=== PATIENT | male | born 1985 | race Caucasian/White ===

== ENCOUNTER 2016-08-30 20:20 | Emergency (ER) | payer OTHER ==
[~2016-08-30 20:20] MED LIST: MINIPRESS PO; NEURONTIN; NORCO1 TAB 10/3; REMERON PO
== END 2016-08-30 20:21 | disposition left against medical advice (07) ==
LOC: CED 20:20
DX: Z53.21 Procedure and treatment not carried out due to patient leaving prior to being seen by health care provider (principal)

== ENCOUNTER 2016-09-20 13:01 | Emergency (ER) | payer OTHER ==
[2016-09-20 13:13] LABS: URINE SOURCE CLEAN CATCH
[2016-09-20 13:19] LABS: URINE APPEARANCE CLEAR; URINE BILIRUBIN NEG (NEG); URINE BLOOD NEG (NEG); URINE COLOR YELLOW; URINE GLUCOSE NEG (NEG); URINE KETONE 1+ (NEG); URINE LEUKOCYTE ESTERASE NEG (NEG); URINE NITRATE NEG (NEG); URINE PROTEIN NEG (NEG); URINE SPECIFIC GRAVITY 1.027 (1.003-1.035); URINE UROBILINOGEN 0.2 MG/DL (NEG)
[2016-09-20 13:23] LABS: CULTURE INDICATED? NO
[2016-09-20 13:49] LABS: AMPHETAMINE POS (NEG); BARBITURATES NEG (NEG); BENZODIAZEPINES POS (NEG); COCAINE NEG (NEG); MARIJUANA NEG (NEG); OPIATES NEG (NEG); TRICYCLIC ANTIDEPRESSANTS NEG (NEG); U METHADONE NEG (NEG)
== END 2016-09-20 14:00 | disposition home or self-care (01) ==
LOC: CED 13:01
PROVIDERS: Emergency Medicine
DX: F11.10 Opioid abuse, uncomplicated (principal); F12.10 Cannabis abuse, uncomplicated; Z88.5 Allergy status to narcotic agent; Z88.8 Allergy status to other drugs, medicaments and biological substances
CPT/HCPCS: 80307; 81003; 99282; G0480

== ENCOUNTER 2016-12-23 20:00 | Inpatient (IN) | payer OTHER ==
--- NOTE | ~2016-12-23 | HP ---
Unit #: [id number] #: [id number] Patient: KRISHNA COSBY [id number] [facility] [address] [place] [address] [id number] MR#: [id number] NAME: KRISHNA COSBY. ROOM: [facility] Age: 31 Sex: M Admission Date: 12/23/2016 : 1985 Attending Physician: Derik Israel M.D. Admitting Physician: Derik Israel M.D. Primary Care Physician: Elidia Lopez M.D. HISTORY AND PHYSICAL HISTORY OF PRESENT ILLNESS Krishna is a 31 year old admitted to [facility] because of his polysubstance abuse which includes alcohol, heroin, and benzodiazepines. PAST MEDICAL HISTORY 1. Long history of polysubstance abuse to include IV heroin. 2. History of stage IV melanoma. 3. Hepatitis C. PAST SURGICAL HISTORY Resection of a stage IV melanoma from his back many years ago. ALLERGIES Tramadol. SOCIAL HISTORY Smokes 2 packs per day. Denies alcohol. Admits to long history of illicit substance abuse to include IV heroin. FAMILY HISTORY Medically noncontributory. REVIEW OF SYSTEMS CONSTITUTIONAL: No fever or chills. HEENT: Denies any sore throat, ear pain or runny nose. CARDIOVASCULAR: Denies chest pain, irregular heart rhythm or palpitations. CHEST: Denies shortness of breath or cough. No hemoptysis. GASTROINTESTINAL: Denies nausea, vomiting, diarrhea or chronic constipation. ENDOCRINE: Denies history of increased thirst or urination. No recent significant weight loss or gain. GENITOURINARY: Denies dysuria, frequency, or hematuria. SKIN: Denies any rashes. HEMATOLOGIC: Denies history of increased bleeding or bruising. MUSCULOSKELETAL: Denies any hot, swollen joints. No generalized muscle pain. NEUROLOGIC: Denies problems with vision or speech. No frequent, severe headaches. No numbness, tingling or weakness in any extremities. Denies loss of bladder or bowel control. CURRENT MEDICATIONS 1. Detox protocol. 2. Minipress 2 mg q.h.s. Unit #: [id number] #: [id number] Patient: KRISHNA COSBY 3. Remeron 15 mg q.h.s. 4. Neurontin 400 mg t.i.d. 5. Zoloft 100 mg q. day. PHYSICAL EXAMINATION GENERAL: Alert, well nourished. No apparent distress. VITAL SIGNS: Blood pressure 100/70, heart rate 80, respirations 16, and temperature 98.6. WEIGHT: 169. HEIGHT: 6 feet 4 inches. SKIN: Warm and dry without rash or lesion. HEENT: Normocephalic. TMs not viewed. Oral and nasal passages clear. Conjunctivae clear. PERRLA. EOMs intact. NECK: Supple without lymphadenopathy or thyromegaly. HEART: Regular rate and rhythm without murmur. LUNGS: Clear. ABDOMEN: Soft, nontender. : Not done. EXTREMITIES: No evidence of cyanosis, clubbing or edema. Moves all without focal deficit. NEUROLOGICAL: Grossly within normal limits. Cranial Nerves: II: Visual mendez are intact. III, IV AND : Extraocular movements are intact. Pupils are equal, round and reactive to light. V: Facial sensation is grossly normal. VII: Facial movements and expression are normal. VIII: Auditory acuity grossly intact. IX, X: Uvula is midline. Phonation is normal. XI: Patient shrugs shoulders and turns head normally. XII: Tongue protrudes in the midline. Sensory and Motor Function: Sensory and motor sensation is grossly normal. Motor: moves all extremities well. Coordination: Gait is normal. Deep Tendon Reflexes: Intact. IMPRESSION Psychiatric admission. RECOMMENDATIONS PSYCHIATRIC: Per psychiatrist. MEDICAL: I see no contraindication to participate in this facility's activities. MEDICAL PROGNOSIS Good. MEDICAL CONDITION Stable. Dictated by... Gale Blake P.A.-C. for Joseph Gonsalves/med TD: 12/25/2016 07:38 JOB #: [id number] Unit #: [id number] #: [id number] Patient: KRISHNA COSBY HISTORY AND PHYSICAL Page 1 of 1 X Gale Blake HISTORY AND PHYSICAL
--- NOTE | ~2016-12-23 | PA ---
Unit #: [id number] #: [id number] Patient: KRISHNA MONSIVAIS [id number] [facility] [address] [place] [address] [id number] MR#: [id number] NAME: KRISHNA MONSIVAIS. ROOM: P183 Age: 31 Sex: M Admission Date: 12/23/2016 : 1985 Date of Assessment: Attending Physician: Derik Israel M.D. Admitting Physician: Derik Israel M.D. Primary Care Physician: Elidia Lopez M.D. PSYCHIATRIC ASSESSMENT DATE OF SERVICE 12/24/2016. IDENTIFYING DATA Mr. Monsivais is a 31-year-old single white male with history of substance abuse and mood disorder, who is a resident of [place], [place], and is very well known to us from previous multiple encounters and was self-referred to the hospital. CHIEF COMPLAINT "I'm on drugs and I would like to detox. I'm also suicidal." HISTORY OF PRESENT ILLNESS Mr. Monsivais is a 31-year-old white male, who presented to the hospital stating that he has been having suicidal thoughts and he has been back on drugs and that he is currently using IV heroin daily with the last use this morning and also reports half a gram of methamphetamine orally or smoking daily with the last use being yesterday and 1 to 3 mg of Xanax with the last use yesterday and 7 to 10 joints a day of spice with the last use yesterday and reports that he is currently suicidal with plan to go down and jump off the bridge, just overdose, and reports increasing depression, anxiety, irritability, feelings of hopelessness and helplessness, and suicidal ideation as well as auditory hallucinations stating "I hear people telling me random things." SUBSTANCE ABUSE HISTORY The patient has extensive history of substance abuse and dependence including alcohol, cannabis, opioids, methamphetamine, benzodiazepines, and spice and currently has been using most of the other drugs on regular basis and he describes heroin to be his drug of choice. PAST PSYCHIATRIC HISTORY The patient has had history of multiple inpatient psychiatric and chemical dependency treatments at [facility], at [facility] and has had outpatient treatment in the past as well. Review of the medical records indicate that he has been diagnosed and treated for mood disorder and is supposed to be on combination of antidepressant medications including Remeron and Zoloft, but appears to be noncompliant with medication and as such, has been decompensating. PAST MEDICAL HISTORY No acute or chronic medical illnesses. Unit #: [id number] #: [id number] Patient: KRISHNA MONSIVAIS ALLERGIES Tramadol. PERSONAL AND SOCIAL HISTORY A 31-year-old white male, who reports that he is single, unemployed, and lives with his family and has poor social support system. MENTAL STATUS EXAMINATION Young white male who was casually dressed with fair personal hygiene, appears to be in no acute distress or discomfort. He was awake and alert on interaction with intact orientation to time, place, and person. His mood was anxious and depressed with a congruent affect. His speech was slow and restricted in content. His thought processes were disorganized with some looseness of associations and flight of ideas and suicidal ideations and auditory hallucinations. His insight and judgment remain significantly impaired. DIAGNOSTIC IMPRESSION Psychiatric: Major depressive disorder, recurrent, moderate, without psychotic features; opioid dependence, moderate and acute withdrawals; benzodiazepine dependence, moderate and acute withdrawals; methamphetamine dependence, moderate. Medical: None. Stressors: Moderate psychosocial stressors. TREATMENT PLAN 1. The patient has presented with a history of substance abuse and mood disorder, and has been decompensating and will need inpatient hospitalization for detoxification, safety, and stabilization. We will start him on detox protocol. We will closely monitor for any worsening withdrawal symptoms. 2. Supportive therapy was provided to the patient. 3. Safe, structured, and nourishing environment will be provided. ESTIMATED LENGTH OF STAY 4 to 5 days. ABILITY TO HELP SELF Limited. WILLINGNESS TO HELP SELF The patient appears to be willing to help self. STRENGTHS 1. Communicative. 2. Cooperative. PROBLEMS 1. Chronic dysphoric symptoms. 2. Chronic chemical dependency. 3. Poor social support system. DISCHARGE CRITERIA This will be contingent upon the patient's ability to go through detox without having any significant withdrawal symptoms as well as his ability to stay safe to himself, particularly after discharge from the hospital. Dictated by... Unit #: [id number] #: [id number] Patient: KRISHNA MONSIVAIS Joseph Mcconnell/pearl TD: 12/24/2016 06:32 JOB #: [id number] PSYCHIATRIC ASSESSMENT Page 1 of 1 X Derik Israel MD PSYCHIATRIC ASSESSMENT
--- NOTE | ~2016-12-23 | PN ---
Unit #: [id number] #: [id number] Patient: KRISHNA MONSIVAIS [id number] [facility] [address] [place] [address] [id number] MR#: [id number] NAME: KRISHNA MONSIVAIS. ROOM: 83 Age: 31 Sex: M Admission Date: 12/23/2016 : 1985 Attending Physician: Derik Israel M.D. Admitting Physician: Derik Israel M.D. Primary Care Physician: Joseph Alvarez PROGRESS NOTES DATE 12/25/2016 DISCUSSION Mr. Monsivais is a 31-year-old, white male who was seen today and chart was reviewed and case was discussed with the staff. He has been anxious, withdrawn though has not shown any agitation, irritability and has been cooperative with treatment recommendation. He has been taking medications and tolerating them fairly well with no reported side effects. MENTAL STATUS EXAM Young white male who was casually dressed with fair personal hygiene, appears to be in no acute distress or discomfort. He was awake and alert on interaction with intact orientation. His mood was anxious with congruent affect. He denies any suicidal or homicidal ideation. His insight and judgement remains slightly impaired. TREATMENT PLAN 1. We will continue him on his current medications and treatment protocol. We will monitor his response and make further adjustments as needed. 2. We will continue to follow up. Dictated by... Joseph Mcconnell/anastasiia TD: 12/26/2016 00:37 JOB #: [id number] Unit #: [id number] #: [id number] Patient: KRISHNA MONSIVAIS PROGRESS NOTES Page 1 of 1 X Derik Israel MD PROGRESS NOTE
--- NOTE | ~2016-12-23 | DS ---
Unit #: [id number] #: [id number] Patient: [facility]IVAIS [id number] [facility] [address] [place] [address] [id number] I MR#: [id number] NAME: KRISHNA MONSIVAIS. ROOM: [facility] Age: 31 Sex: M Admission Date: 12/23/2016 : 1985 Discharge Date: 12/26/2016 Attending Physician: Derik Israel M.D. Primary Care Physician: Elidia Lopez M.D. DISCHARGE SUMMARY IDENTIFYING DATA Mr. Monsivais is a 31-year-old single white male with history of substance abuse and mood disorder, who is known to me from previous encounter and was self-referred to the hospital. DISCHARGE DIAGNOSES Psychiatric: Major depressive disorder, recurrent, moderate, without psychotic features; opioid dependence, moderate and acute withdrawals; benzodiazepine dependence, moderate and acute withdrawals; methamphetamine dependence, moderate. Medical: None. Stressors: Moderate psychosocial stressors. HISTORY OF PRESENT ILLNESS Please see initial psychiatric evaluation for details. PAST PSYCHIATRIC HISTORY Please see initial psychiatric evaluation for details. PAST MEDICAL HISTORY Please see initial psychiatric evaluation for details. HOSPITAL COURSE The patient was admitted to the adult chemical dependency unit at [facility] and was oriented to the hospital environment. Routine p.r.n. medications were initiated, and he was started back on his home medications and detox protocol was initiated and was closely monitored. He was taking the medications regularly and was tolerating them fairly well and was able to show a decent therapeutic response and as such, it was decided that he will be discharged home and will continue treatment on an outpatient basis. DISCHARGE MEDICATIONS Zoloft 100 mg a day for depression and Remeron 15 mg at bedtime for depression. DISCHARGE CONDITION Stable. PROGNOSIS Fair. Dictated by... Unit #: [id number] #: [id number] Patient: KRISHNA MONSIVAIS Derik Israel M.D. IAA/modl TD: 12/26/2016 07:11 JOB #: [id number] DISCHARGE SUMMARY Page 1 of 1 X Derik Israel MD X DISCHARGE SUMMARY
[2016-12-24 09:52] LABS: BASOPHIL% 0.6 % (0-2.5); EOSINOPHIL# 0.2 X10e3 (0-0.7); EOSINOPHIL% 3.6 % (0.0-7.0); HEMATOCRIT 42.6 % (38.0-50.0); HEMOGLOBIN 13.9 gm/dL (13.0-16.0); LYMPHOCYTE% 46.5 % (17.0-45.0); MEAN CELL VOLUME 97.4 FL (83-96); MEAN CORPUSCULAR HEMOGLOBIN 31.9 PG (28-34); MEAN CORPUSCULAR HGB CONC 32.7 g/dL (30-36); MONOCYTE# 0.5 X10e3 (0-1.0); MONOCYTE% 12.9 % (3.0-12.0); NEUTROPHIL# 1.5 X10e3 (1.5-7.1); NEUTROPHIL% 36.4 % (40-75); PLATELET COUNT 141 X10e3 (140-420); RED BLOOD COUNT 4.37 X10e (3.90-5.60); RED CELL DISTRIBUTION WIDTH 13.6 % (11.0-15.5); WHITE BLOOD COUNT 4.3 X10e3 (4.0-10.5)
[2016-12-24 10:05] LABS: ALBUMIN SERUM 3.8 g/dL (3.5-5.0); BUN/CREATININE RATIO 16.66; CALCIUM SERUM 8.6 mg/dL (8.4-10.2); CREATININE SERUM 0.9 mg/dL (0.6-1.4); GLOM FILT RATE Estimated 111.8 mL/min (>60); POTASSIUM 3.7 mmol/L (3.5-5.1); PROTEIN TOTAL SERUM 6.7 g/dL (6.0-8.3)
[2016-12-24 10:06] LABS: DIFF IND NO
[2016-12-25 10:08] LABS: URINE APPEARANCE CLOUDY; URINE BLOOD NEG (NEG); URINE COLOR YELLOW; URINE GLUCOSE NORM (NORM); URINE KETONE NEG (NEG); URINE LEUKOCYTE ESTERASE NEG (NEG); URINE NITRATE NEG (NEG); URINE PROTEIN NEG (NEG); URINE UROBILINOGEN NORM (NORM)
[2016-12-25 10:24] LABS: AMPHETAMINE POS (NEG); BARBITURATES NEG (NEG); BENZODIAZEPINES POS (NEG); COCAINE NEG (NEG); MARIJUANA POS (NEG); OPIATES NEG (NEG); TRICYCLIC ANTIDEPRESSANTS NEG (NEG); U METHADONE NEG (NEG)
[2016-12-25 10:41] LABS: URINE BILIRUBIN NEG (NEG)
== END 2016-12-26 10:34 | DRG 885 ==
LOC: P1E 22:38
PROVIDERS: Psychiatry & Neurology Psychiatry
PROC: HZ2ZZZZ Detoxification Services for Substance Abuse Treatment (ICD-10-PCS; principal; 2016-12-23)
DX: F33.1 Major depressive disorder, recurrent, moderate (principal); F15.20 Other stimulant dependence, uncomplicated; F11.23 Opioid dependence with withdrawal; F13.239 Sedative, hypnotic or anxiolytic dependence with withdrawal, unspecified; Z85.820 Personal history of malignant melanoma of skin; F17.210 Nicotine dependence, cigarettes, uncomplicated
CPT/HCPCS: 80053; 80307; 81003; 85025; 86592